=== PATIENT | male | born 1980 | race Caucasian/White ===

== ENCOUNTER → 2017-01-25 | Outpatient (CLI) | payer OTHER ==
[2017-01-25 08:25] LABS: MEAN PLATELET VOLUME 9.9 FL (7.4-10.4); RED BLOOD COUNT 5.28 10^6/uL (4.35-5.85); RED CELL DISTRIBUTION WIDTH 13.3 % (10.0-14.5); WHITE BLOOD COUNT 7.1 10^3/uL (4.3-11.0)
[2017-01-25 08:48] LABS: ALANINE AMINOTRANSFERASE 85 U/L (0-55); ALBUMIN 4.3 GM/DL (3.2-4.5); ANION GAP 11 MMOL/L (5-14); ASPARTATE AMINO TRANSFERASE 41 U/L (5-34); BILIRUBIN,TOTAL 0.7 MG/DL (0.1-1.0); BLOOD UREA NITROGEN 14 MG/DL (7-18); BUN/CREATININE RATIO 14; CALCIUM 9.6 MG/DL (8.5-10.1); CARBON DIOXIDE 25 MMOL/L (21-32); CHLORIDE 104 MMOL/L (98-107); CHOLESTEROL 166 MG/DL (< 200); CREATININE SERUM 1.01 MG/DL (0.60-1.30); DIRECT LDL 109 MG/DL (1-129); GFR ESTIMATED > 60; GLUCOSE 119 MG/DL (70-105); SODIUM 140 MMOL/L (135-145); TOTAL PROTEIN 7.7 GM/DL (6.4-8.2); TRIGLYCERIDES 175 MG/DL (<150); VLDL CHOLESTEROL 35 MG/DL (5-40)
[2017-01-25 09:08] LABS: THYROID STIMULATING HORMONE 2.18 UIU/ML (0.35-4.94)
== END ==
LOC: LAB 08:06
PROVIDERS: ATTEND Internal Medicine
DX: I10 Essential (primary) hypertension (principal); E78.4 Other hyperlipidemia; R94.5 Abnormal results of liver function studies
CPT/HCPCS: 36415; 80053; 80061; 84443; 85027

== ENCOUNTER → 2017-02-01 | Outpatient (CLI) | payer OTHER ==
[~2017-02-01] MED LIST: ATOR20TA66 PO; BISO1TAB8 PO; ESCI10TA55 PO; MECL-106 PO; ONDA8TAB9 PO; SCOP1PAT TD
--- NOTE | 2017-02-01 11:56 | Diagnostic Imaging Report ---
EXAMINATION: Ultrasound of the liver. INDICATION: Elevated liver enzymes. FINDINGS: The pancreas is obscured by bowel gas. The liver is borderline enlarged at 18.5 cm in craniocaudal dimension and demonstrates increased density diffusely which may relate to hepatitis or fatty infiltration. The gallbladder demonstrates no definite stone or wall thickening. No pericholecystic fluid. There is overall some difficulty visualizing the gallbladder on this exam related to attenuation of the ultrasound beam by the overlying liver and soft tissues. The CBD is 5 mm in caliber. There is hepatopetal flow in the portal vein demonstrated. The right kidney is 10.8 cm in length with no hydronephrosis or focal lesion. No fluid collection in the upper right abdomen is seen. Sonographic Hyman sign is reportedly negative. IMPRESSION: Hepatic echogenicity suggestive of fatty infiltration or hepatitis. Dictated by: Dictated on workstation # [id number]
== END ==
LOC: RAD 06:48
PROVIDERS: ATTEND Internal Medicine
DX: R93.2 Abnormal findings on diagnostic imaging of liver and biliary tract (principal); R74.8 Abnormal levels of other serum enzymes
CPT/HCPCS: 76705

== ENCOUNTER → 2017-08-02 | Outpatient (CLI) | payer OTHER ==
[~2017-08-02] MED LIST changes: -SCOP1PAT TD; +SCOP1PAT11 TD
[2017-08-02 09:37] LABS: BASOPHILS % (AUTO) 1 % (0-10); EOSINOPHILS # (AUTO) 0.2 10^3/uL (0.0-0.3); EOSINOPHILS % (AUTO) 4 % (0-10); HEMATOCRIT 45 % (40-54); HEMOGLOBIN 15.3 G/DL (13.3-17.7); LYMPHOCYTES # (AUTO) 2.2 X 10^3 (1.0-4.0); LYMPHOCYTES % (AUTO) 31 % (12-44); MEAN CORPUSCULAR HEMOGLOBIN 30 PG (25-34); MEAN CORPUSCULAR HGB CONC 34 G/DL (32-36); MEAN CORPUSCULAR VOLUME 87 FL (80-99); MEAN PLATELET VOLUME 9.9 FL (7.4-10.4); MONOCYTES # (AUTO) 0.5 X 10^3 (0.0-1.0); MONOCYTES % (AUTO) 8 % (0-12); NEUTROPHILS # (AUTO) 3.9 X 10^3 (1.8-7.8); NEUTROPHILS % (AUTO) 57 % (42-75); PLATELET COUNT 258 10^3/uL (130-400); RED BLOOD COUNT 5.19 10^6/uL (4.35-5.85); RED CELL DISTRIBUTION WIDTH 13.3 % (10.0-14.5); WHITE BLOOD COUNT 6.9 10^3/uL (4.3-11.0)
[2017-08-02 09:53] LABS: ALANINE AMINOTRANSFERASE 101 U/L (0-55); ALBUMIN 4.4 GM/DL (3.2-4.5); ALKALINE PHOSPHATASE 68 U/L (40-136); BUN/CREATININE RATIO 16; CALCIUM 9.4 MG/DL (8.5-10.1); CARBON DIOXIDE 24 MMOL/L (21-32); CHLORIDE 105 MMOL/L (98-107); CHOLESTEROL 143 MG/DL (< 200); CREATININE SERUM 0.88 MG/DL (0.60-1.30); GFR ESTIMATED > 60; GLUCOSE 134 MG/DL (70-105); HDL CHOLESTEROL 33 MG/DL (40-60); POTASSIUM 4.2 MMOL/L (3.6-5.0); SODIUM 138 MMOL/L (135-145); TOTAL PROTEIN 7.4 GM/DL (6.4-8.2); TRIGLYCERIDES 88 MG/DL (<150); VLDL CHOLESTEROL 18 MG/DL (5-40)
== END ==
LOC: LAB 09:18
PROVIDERS: ATTEND Internal Medicine
DX: E78.4 Other hyperlipidemia (principal); R94.5 Abnormal results of liver function studies; Z79.899 Other long term (current) drug therapy
CPT/HCPCS: 36415; 80053; 80061; 85025

== ENCOUNTER → 2018-02-06 | Outpatient (CLI) | payer OTHER ==
[2018-02-06 11:26] LABS: ALANINE AMINOTRANSFERASE 109 U/L (0-55); ALBUMIN 4.5 GM/DL (3.2-4.5); ALKALINE PHOSPHATASE 66 U/L (40-136); BILIRUBIN,TOTAL 1.1 MG/DL (0.1-1.0); BUN/CREATININE RATIO 17; CALCIUM 9.6 MG/DL (8.5-10.1); CARBON DIOXIDE 24 MMOL/L (21-32); CHLORIDE 104 MMOL/L (98-107); CHOLESTEROL 157 MG/DL (< 200); CREATININE SERUM 0.83 MG/DL (0.60-1.30); GFR ESTIMATED > 60; GLUCOSE 129 MG/DL (70-105); HDL CHOLESTEROL 30 MG/DL (40-60); POTASSIUM 4.2 MMOL/L (3.6-5.0); SODIUM 138 MMOL/L (135-145); TOTAL PROTEIN 7.5 GM/DL (6.4-8.2); TRIGLYCERIDES 133 MG/DL (<150); VLDL CHOLESTEROL 27 MG/DL (5-40)
== END ==
LOC: LAB 10:53
PROVIDERS: ATTEND Internal Medicine
DX: I10 Essential (primary) hypertension (principal); E78.4 Other hyperlipidemia; R74.8 Abnormal levels of other serum enzymes; R73.09 Other abnormal glucose
CPT/HCPCS: 36415; 80053; 80061

== ENCOUNTER 2018-05-07 20:05 | Outpatient (CLI) | payer OTHER | END 2018-05-08 06:24 | disposition home or self-care (01) | LOC: SLEEP 20:05 | PROVIDERS: ATTEND Otolaryngology Otolaryngology/Facial Plastic Surgery | DX: G47.33 Obstructive sleep apnea (adult) (pediatric) (principal); R68.3 Clubbing of fingers; G47.10 Hypersomnia, unspecified | CPT/HCPCS: 95810 ==

== ENCOUNTER → 2018-06-14 | Outpatient (CLI) | payer OTHER ==
[~2018-06-14] MED LIST changes: +BARIUM SUSPENSION 105% (LIQUID POLIBAR PLUS) 240 ML/DOSE PO ONE; +BARIUM SUSPENSION 60% (LIQUID EZ PAQUE) 240 ML DOSE PO ONE
--- NOTE | 2018-06-14 10:16 | Diagnostic Imaging Report ---
INDICATION: Preop for gastric surgery. FINDINGS: The patient ingested effervescent crystals as well as thin and thick barium and imaging of the esophagus, stomach and proximal small bowel was performed. Total of 1 minute and 8 seconds of fluoroscopy was utilized. The esophagus has a smooth contour. No mass or stricture is identified. No gastroesophageal reflux or hiatal hernia is demonstrated. There is prompt emptying from the stomach into the small bowel. Duodenal bulb is without deformity. No gastric mass is seen. IMPRESSION: Unremarkable upper GI. Dictated by: Dictated on workstation # [id number]
== END ==
LOC: RAD 09:16
PROVIDERS: ATTEND Surgery
DX: Z01.818 Encounter for other preprocedural examination (principal); K21.9 Gastro-esophageal reflux disease without esophagitis
CPT/HCPCS: 74241

== ENCOUNTER → 2018-07-31 | Outpatient (CLI) | payer OTHER ==
[~2018-07-31] MED LIST changes: -BARIUM SUSPENSION 105% (LIQUID POLIBAR PLUS) 240 ML/DOSE PO ONE; -BARIUM SUSPENSION 60% (LIQUID EZ PAQUE) 240 ML DOSE PO ONE
[2018-07-31 09:39] LABS: HEMOGLOBIN 14.7 G/DL (13.3-17.7); MEAN PLATELET VOLUME 9.5 FL (7.4-10.4); RED CELL DISTRIBUTION WIDTH 13.3 % (10.0-14.5); WHITE BLOOD COUNT 7.1 10^3/uL (4.3-11.0)
[2018-07-31 09:59] LABS: ALANINE AMINOTRANSFERASE 49 U/L (0-55); ALBUMIN 4.4 GM/DL (3.2-4.5); ALKALINE PHOSPHATASE 58 U/L (40-136); BILIRUBIN,TOTAL 0.6 MG/DL (0.1-1.0); BUN/CREATININE RATIO 24; CALCIUM 9.3 MG/DL (8.5-10.1); CARBON DIOXIDE 23 MMOL/L (21-32); CHLORIDE 104 MMOL/L (98-107); CREATININE SERUM 0.88 MG/DL (0.60-1.30); GFR ESTIMATED > 60; GLUCOSE 128 MG/DL (70-105); SODIUM 138 MMOL/L (135-145); TOTAL PROTEIN 7.5 GM/DL (6.4-8.2)
--- NOTE | 2018-07-31 10:02 | Diagnostic Imaging Report ---
PROCEDURE: CT head without contrast. TECHNIQUE: Multiple contiguous axial images were obtained through the brain without the use of intravenous contrast. INDICATION: Headache with dizziness and visual disturbances. COMPARISON: No comparison available. FINDINGS: No CT findings of an acute intracranial abnormality. There is no evidence of intracranial hemorrhage. There is no intracranial mass effect or shift. There is no hydrocephalus. There is no abnormal extra-axial fluid collection. The basilar cisterns appear patent. Aquino-white matter differentiation appear maintained. There is no abnormal low density evident within the basal ganglia or within the tenisha. Mastoid air cells appear clear. Visualized paranasal sinuses are clear. Orbital contents are unremarkable. There is no acute calvarial abnormality. IMPRESSION: 1. No CT evidence of an acute intracranial abnormality. If continued clinical concern, MRI could be considered. Dictated by: Dictated on workstation # [id number]
== END ==
LOC: RAD 09:09
PROVIDERS: ATTEND Internal Medicine
DX: H53.8 Other visual disturbances (principal); R42 Dizziness and giddiness; R51 Headache
CPT/HCPCS: 36415; 70450; 80053; 84443; 85027; 85652

== ENCOUNTER → 2021-09-15 | Outpatient (CLI) | payer OTHER ==
[~2021-09-15] MED LIST changes: +BISO-1 PO; -BISO1TAB8 PO; +ESCI-2 PO; -ESCI10TA55 PO; -MECL-106 PO; +MECL-149 PO; +SCOP1PAT10 TD; -SCOP1PAT11 TD
[2021-09-15 10:16] LABS: BASOPHILS # (AUTO) 0.1 10^3/uL (0.0-0.1); BASOPHILS % (AUTO) 1 % (0-10); EOSINOPHILS # (AUTO) 0.2 10^3/uL (0.0-0.3); EOSINOPHILS % (AUTO) 2 % (0-10); HEMATOCRIT 47 % (40-54); HEMOGLOBIN 15.7 g/dL (13.3-17.7); LYMPHOCYTES # (AUTO) 2.3 10^3/uL (1.0-4.0); LYMPHOCYTES % (AUTO) 31 % (12-44); MEAN CORPUSCULAR HEMOGLOBIN 29 pg (25-34); MEAN CORPUSCULAR HGB CONC 34 g/dL (32-36); MEAN CORPUSCULAR VOLUME 87 fL (80-99); MEAN PLATELET VOLUME 9.9 fL (9.0-12.2); MONOCYTES # (AUTO) 0.6 10^3/uL (0.0-1.0); MONOCYTES % (AUTO) 8 % (0-12); NEUTROPHILS # (AUTO) 4.3 10^3/uL (1.8-7.8); NEUTROPHILS % (AUTO) 58 % (42-75); PLATELET COUNT 287 10^3/uL (130-400); WHITE BLOOD COUNT 7.5 10^3/uL (4.3-11.0)
[2021-09-15 10:43] LABS: ALBUMIN 4.5 GM/DL (3.2-4.5); BILIRUBIN,TOTAL 0.8 MG/DL (0.1-1.0); CALCIUM 9.8 MG/DL (8.5-10.1); CREATININE SERUM 1.16 MG/DL (0.60-1.30); POTASSIUM 4.2 MMOL/L (3.6-5.0); TOTAL PROTEIN 7.8 GM/DL (6.4-8.2)
== END ==
LOC: LAB 08:55
PROVIDERS: ATTEND Internal Medicine
DX: J90 Pleural effusion, not elsewhere classified (principal)
CPT/HCPCS: 36415; 80053; 80061; 83036; 84443; 85025

== ENCOUNTER → 2022-01-19 | Outpatient (CLI) | payer OTHER ==
[2022-01-19 11:39] LABS: BASOPHILS % (AUTO) 1 % (0-10); EOSINOPHILS # (AUTO) 0.2 10^3/uL (0.0-0.3); EOSINOPHILS % (AUTO) 2 % (0-10); HEMATOCRIT 50 % (40-54); HEMOGLOBIN 16.3 g/dL (13.3-17.7); LYMPHOCYTES # (AUTO) 1.8 10^3/uL (1.0-4.0); LYMPHOCYTES % (AUTO) 26 % (12-44); MEAN CORPUSCULAR HEMOGLOBIN 28 pg (25-34); MEAN CORPUSCULAR HGB CONC 33 g/dL (32-36); MEAN CORPUSCULAR VOLUME 88 fL (80-99); MEAN PLATELET VOLUME 9.7 fL (9.0-12.2); MONOCYTES # (AUTO) 0.6 10^3/uL (0.0-1.0); MONOCYTES % (AUTO) 9 % (0-12); NEUTROPHILS # (AUTO) 4.4 10^3/uL (1.8-7.8); NEUTROPHILS % (AUTO) 62 % (42-75); PLATELET COUNT 294 10^3/uL (130-400)
[2022-01-19 12:07] LABS: ALBUMIN 4.7 GM/DL (3.2-4.5); CHLORIDE 101 MMOL/L (98-107); POTASSIUM 3.7 MMOL/L (3.6-5.0); SODIUM 141 MMOL/L (135-145)
[2022-01-19 12:08] LABS: CALCIUM 9.8 MG/DL (8.5-10.1)
[2022-01-19 12:09] LABS: TOTAL PROTEIN 8.3 GM/DL (6.4-8.2); TRIGLYCERIDES 74 MG/DL (<150); VLDL CHOLESTEROL 15 MG/DL (5-40)
[2022-01-19 12:10] LABS: CARBON DIOXIDE 27 MMOL/L (21-32); GLUCOSE 114 MG/DL (70-105)
[2022-01-19 12:11] LABS: BILIRUBIN,TOTAL 0.8 MG/DL (0.1-1.0)
[2022-01-19 12:13] LABS: ALKALINE PHOSPHATASE 65 U/L (40-136); CREATININE SERUM 0.96 MG/DL (0.60-1.30); GFR ESTIMATED 101
[2022-01-19 12:14] LABS: BUN/CREATININE RATIO 18; CHOLESTEROL 160 MG/DL (< 200)
[2022-01-19 12:15] LABS: HDL CHOLESTEROL 35 MG/DL (40-60)
[2022-01-19 12:16] LABS: ALANINE AMINOTRANSFERASE 33 U/L (0-55)
== END ==
LOC: LAB 09:14
PROVIDERS: ATTEND Internal Medicine
DX: E78.2 Mixed hyperlipidemia (principal); I10 Essential (primary) hypertension; R79.9 Abnormal finding of blood chemistry, unspecified
CPT/HCPCS: 36415; 80053; 80061; 83036; 84443; 85025

== ENCOUNTER → 2022-03-01 | Outpatient (CLI) | payer OTHER ==
[2022-03-01 07:03] LABS: POTASSIUM 3.7 MMOL/L (3.6-5.0)
[2022-03-01 07:04] LABS: CALCIUM 9.2 MG/DL (8.5-10.1)
[2022-03-01 07:08] LABS: CREATININE SERUM 0.91 MG/DL (0.60-1.30)
== END ==
LOC: LAB 06:32
PROVIDERS: ATTEND Internal Medicine
DX: Z79.899 Other long term (current) drug therapy (principal)
CPT/HCPCS: 36415; 80048

== ENCOUNTER → 2022-05-27 | Outpatient (CLI) | payer OTHER ==
[2022-05-27 14:24] LABS: BASOPHILS % (AUTO) 1 % (0-10); EOSINOPHILS # (AUTO) 0.2 10^3/uL (0.0-0.3); EOSINOPHILS % (AUTO) 3 % (0-10); HEMATOCRIT 49 % (40-54); HEMOGLOBIN 16.5 g/dL (13.3-17.7); LYMPHOCYTES # (AUTO) 1.7 10^3/uL (1.0-4.0); LYMPHOCYTES % (AUTO) 28 % (12-44); MEAN CORPUSCULAR HEMOGLOBIN 30 pg (25-34); MEAN CORPUSCULAR HGB CONC 34 g/dL (32-36); MEAN CORPUSCULAR VOLUME 88 fL (80-99); MEAN PLATELET VOLUME 9.8 fL (9.0-12.2); MONOCYTES # (AUTO) 0.5 10^3/uL (0.0-1.0); MONOCYTES % (AUTO) 8 % (0-12); NEUTROPHILS # (AUTO) 3.8 10^3/uL (1.8-7.8); NEUTROPHILS % (AUTO) 61 % (42-75); PLATELET COUNT 241 10^3/uL (130-400); WHITE BLOOD COUNT 6.2 10^3/uL (4.3-11.0)
[2022-05-27 14:48] LABS: ALBUMIN 4.5 GM/DL (3.2-4.5); BILIRUBIN,TOTAL 0.7 MG/DL (0.1-1.0); CALCIUM 9.3 MG/DL (8.5-10.1); CREATININE SERUM 0.9 MG/DL (0.60-1.30); TOTAL PROTEIN 7.6 GM/DL (6.4-8.2)
== END ==
LOC: SDC 14:08
PROVIDERS: ATTEND Physician Assistant
DX: I10 Essential (primary) hypertension (principal); E11.9 Type 2 diabetes mellitus without complications; Z79.899 Other long term (current) drug therapy
CPT/HCPCS: 36415; 80053; 83036; 85025

== ENCOUNTER → 2022-10-19 | Outpatient (CLI) | payer OTHER ==
[2022-10-19 07:04] LABS: ALBUMIN 4.5 GM/DL (3.2-4.5); BILIRUBIN,TOTAL 0.8 MG/DL (0.1-1.0); CALCIUM 9.4 MG/DL (8.5-10.1); CREATININE SERUM 1.07 MG/DL (0.60-1.30); POTASSIUM 3.9 MMOL/L (3.6-5.0); TOTAL PROTEIN 7.8 GM/DL (6.4-8.2)
== END ==
LOC: LAB 06:31
PROVIDERS: ATTEND Internal Medicine
DX: E11.9 Type 2 diabetes mellitus without complications (principal); I10 Essential (primary) hypertension
CPT/HCPCS: 36415; 80053; 83036

== ENCOUNTER 2022-11-02 05:39 | Outpatient (CLI) | payer OTHER ==
[~2022-11-02] VITALS: Ht 180.3 cm; Wt 131.5 kg
[2022-11-02] MEDS ORDERED: LOSA25TA41 PO (10:26)
[2022-11-02] MEDS ORDERED: DAPA5TAB PO (10:26)
== END 2022-11-02 10:29 | disposition home or self-care (01) ==
LOC: PREOP 05:39
PROVIDERS: ATTEND Surgery
DX: Z01.818 Encounter for other preprocedural examination (principal)

== ENCOUNTER 2022-11-09 09:52 | Day surgery (SDC) | payer OTHER ==
--- NOTE | 2022-10-30 04:46 | HISTORY AND PHYSICAL ---
DATE OF SERVICE: 11/09/2022 DATE OF ADMISSION: 11/09/2022. ATTENDING PRIMARY CARE PHYSICIAN: Dr. King Gomez. HISTORY OF PRESENT ILLNESS: The patient is a 42-year-old male known to us. He states that in the past 9 months, he has noticed bright red blood per rectum. He states that this was initially mild; however, this has increased to the point where every time he has a bowel movement, there is red blood mixed with the stools. He does not report any pain upon defecation as well as no crampy abdominal pain. He states that in his past he may have had some hard constipated stools; however, at this time does not have any issues with this. He is otherwise doing well and is not experiencing any systemic symptoms of fever, no chills, diffuse, crampy abdominal pain as well as no recent inadvertent weight loss. He has not had a colonoscopy at this point in his life. He does not report any family history of colon cancer. PAST MEDICAL HISTORY: Hypertension, hypercholesterolemia, diabetes. PAST SURGICAL HISTORY: Left shoulder arthroscopy, left knee arthroscopy, multiple incision and drainage of perirectal abscess as well as a Seton suture placement for fistula. Lateral internal sphincterotomy. ALLERGIES: No known drug allergies. MEDICATIONS: Atorvastatin 20 mg daily, losartan 10 mg daily, Farxiga 5 mg daily. SOCIAL HISTORY: Negative smoke, negative alcohol. FAMILY HISTORY: Father, coronary artery disease, diagnosed in his 60s. Mother, multiple sclerosis. VITAL SIGNS: Stable. Blood pressure 126/80, current weight 290 pounds at 6 feet 0 inches. REVIEW OF SYSTEMS: Well-nourished male in no acute distress. He is not in any shortness of breath, no difficulty breathing. No chest pain, palpitations, diaphoresis. No nausea, vomiting with 9-month history of bright red blood per rectum usually, mixed with stools with most bowel movements. No abdominal pain. No fever, chills, no recent inadvertent weight loss. All other review of systems negative. PHYSICAL EXAMINATION: CHEST: Clear. Good breath sounds bilaterally. HEART: Regular. No murmurs. EXTREMITIES: No lower extremity edema. Negative Homans sign. HEENT: No scleral icterus. No cervical lymphadenopathy. ABDOMEN: Soft, nontender, nondistended. No palpable masses. No hernias. SKIN: Warm, dry. ASSESSMENT AND PLAN: A 42-year-old male with persistent rectal bleeding. Due to its symptomatology as well as his age being close to 43, we will proceed with a diagnostic colonoscopy as well as biopsies as appropriate. Job ID: [id number] DocumentID: [id number] Dictated Date: 10/15/2022 18:43:57 Farm Field Manager Date: 10/15/2022 19:10:00 Dictated By: TONY HOOKS MD
[~2022-11-09] VITALS: Ht 180 cm; Wt 130.0 kg
[~2022-11-09 09:52] MED LIST changes: +DAPA5TAB PO; +LOSA25TA41 PO
[2022-11-09 10:13] VITALS: BP 129/80
[2022-11-09] MEDS ORDERED: LACTATED RINGERS 1,000 ML IV STA (10:20)
[2022-11-09] MEDS ORDERED: PROPOFOL INJECTION 50 ML IV ONE ×2 (10:29→10:52)
[2022-11-09] MEDS ORDERED: MIDAZOLAM 2 MG/2 ML (VERSED) VIAL ONE (10:29)
[2022-11-09] MEDS ORDERED: LIDOCAINE JELLY 2% 6 ML SYRINGE MM PRN (10:30)
[2022-11-09] MEDS ORDERED: LIDOCAINE JELLY 2% 6 ML SYRINGE ONE ×2 (10:31→10:32)
--- NOTE | 2022-11-09 10:35 | Progress Note-Pre Operative ---
Pre-Operative Progress Note Date of Available H&P: Nov 09, 2022 Date H&P Reviewed: Nov 09, 2022 Time H&P Reviewed: 10:00 History & Physical: No changes noted Pre-Operative Diagnosis: rectal bleed TONY HOOKS MD Nov 09, 2022 10:35
--- NOTE | 2022-11-09 10:36 | Discharge Inst-Surgical ---
D/C Lap Instructions-NEVA Follow Up Activity as tolerated High Fiber Diet 25g or more per day Avoid Alcohol, Caffeine, Spicy Cantril and Acid foods. Drink 64 fluid oz or more of fluids per day. Symptoms to Report: Fever over 101 degree F, Nausea/Vomiting If any problems/questions: Contact your physician or go to Emergency Room TONY HOOKS MD Nov 09, 2022 10:36
[2022-11-09] MEDS ORDERED: ONDANSETRON 4 MG (ZOFRAN) ORAL DISSOLVE TAB PO PRN (10:45)
[2022-11-09] MEDS ORDERED: ONDANSETRON 4 MG/2 ML (SDV) Z0FRAN IVP PRN (10:45)
[2022-11-09 11:00] VITALS: BP 102/55
[2022-11-09 11:05] VITALS: BP 120/60
[2022-11-09 11:18] VITALS: BP 120/60
--- NOTE | 2022-11-09 11:19 | Progress Note-Post Operative ---
Post-Operative Progess Note Surgeon (s)/Cook Vegetable (s) Surgeon TONY HOOKS MD Cook Vegetable: none Pre-Operative Diagnosis rectal bleed Post-Operative Diagnosis chronic stage int hemorrhoids, possible perianal fistula. Procedure & Operative Findings Date of Procedure 11/09/22 Procedure Performed/Findings colonoscopy Anesthesia Type mac Estimated Blood Loss Estimated blood loss (mL): minimal Specimens/Packing Specimens Removed none TONY HOOKS MD Nov 09, 2022 11:19
[2022-11-09 11:27] VITALS: BP 120/60
--- NOTE | 2022-11-09 11:44 | Anesthesia-General Post-Op ---
MAC Patient Condition Mental Status/LOC: Same as Preop Cardiovascular: Satisfactory Nausea/Vomiting: Absent Respiratory: Satisfactory Pain: Controlled Complications: Absent Post Op Complications Complications None Follow Up Care/Instructions Patient Instructions None needed. Anesthesiology Discharge Order Discharge Order Patient is doing well, no complaints, stable vital signs, no apparent adverse anesthesia problems. No complications reported per nursing. DIANNE REDMOND [employer] PLAYER Nov 09, 2022 11:44
--- NOTE | 2022-11-09 17:42 | OPERATIVE REPORT ---
DATE OF SERVICE: 11/09/2022 ATTENDING PRIMARY CARE PHYSICIAN: Dr. King Gomez. PREOPERATIVE DIAGNOSIS: Rectal bleeding. 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 PROCEDURE: Colonoscopy. SURGEON: Tony Hooks MD ANESTHESIA: Monitored anesthesia care. ESTIMATED BLOOD LOSS: Minimal. 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 DISPOSITION: The patient tolerated the procedure well. INDICATIONS: The patient is a 42-year-old male known to us. He states in the past 9 months, he has noticed bright red blood per rectum, which was initially mild; however, increased to the point where he would have red blood mixed with the stools with every bowel movement. He does not report any pain upon defecation as well as no crampy abdominal pain. He states that in the past, he did have some minor issues with constipation and this did cause him to develop some issues including perirectal abscess, fistula and requiring multiple incision and drainage of perirectal abscesses, Seton suture placement for fistula as well as a lateral internal sphincterotomy. He is otherwise doing well, is not experiencing any systemic symptoms of fever, no chills as well as no diffuse, crampy abdominal pain and no recent inadvertent weight loss. He also does not report any family history of colon or rectal cancer. DESCRIPTION OF PROCEDURE: The patient was brought to the endoscopy suite and laid in the left lateral decubitus position. After adequate IV pain and sedative medications and monitored anesthesia care, a digital rectal examination was performed. There were postsurgical changes from the previous incision and drainage of perirectal abscesses, fistulotomy and internal sphincterotomy. There was a between stage II and III internal hemorrhoids. There was a small sinus tract of the superior aspect of the anus next to the coccyx, which was not actively edematous and no bleeding identified. We could not tell if there was any communication within the anal canal. Normal sphincter tone was felt and there were no palpable masses. Prostate gland was palpable and appeared normal. The endoscope was then intubated into the anus, rectum gently insufflated. The endoscope was then advanced through the valves of Birch of the rectum with no polyps or any neoplasms identified. We then proceeded through the sigmoid colon where no diverticulosis identified. The endoscope was then advanced to the remainder of the descending, transverse and ascending colon to the cecum, which were normal. There were no polyps or any neoplasms identified as well as no mucosal inflammatory changes identified. The endoscope was then slowly withdrawn while taking a second look and suctioning of residual air with no additional findings. The patient tolerated the procedure well. We will recommend continued medical management with a high-fiber diet with incorporation of a fiber supplement, which should equal or exceed 30 grams daily as well as significant amounts of water to promote soft stools on a daily basis. If he continues to have issues with rectal bleeding, we would then recommend an anal exam under anesthesia to identify the possibility of a fistula and the proper treatment for this whether be a fistulotomy or Seton suture placement. Job ID: [id number] DocumentID: [id number] Dictated Date: 11/09/2022 11:05:55 Dairy Farm Manager Date: 11/09/2022 17:40:00 Dictated By: TONY HOOKS MD
== END 2022-11-09 11:41 | disposition home or self-care (01) ==
LOC: ENDO 09:52
PROVIDERS: ATTEND Surgery
DX: K64.1 Second degree hemorrhoids (principal); K62.5 Hemorrhage of anus and rectum; G47.33 Obstructive sleep apnea (adult) (pediatric); E11.9 Type 2 diabetes mellitus without complications; E66.01 Morbid (severe) obesity due to excess calories; Z79.84 Long term (current) use of oral hypoglycemic drugs; Z68.41 Body mass index [BMI] 40.0-44.9, adult; Z98.890 Other specified postprocedural states

== ENCOUNTER → 2023-03-07 | Outpatient (CLI) | payer OTHER ==
[~2023-03-07] MED LIST changes: -MECL-149 PO; +MECL-291 PO
[2023-03-07 13:31] LABS: ALBUMIN 4.5 GM/DL (3.2-4.5); CALCIUM 9.4 MG/DL (8.5-10.1); CREATININE SERUM 0.98 MG/DL (0.60-1.30); TOTAL PROTEIN 7.8 GM/DL (6.4-8.2)
== END ==
LOC: LAB 12:54
PROVIDERS: ATTEND Internal Medicine
DX: E11.9 Type 2 diabetes mellitus without complications (principal); I10 Essential (primary) hypertension; E78.2 Mixed hyperlipidemia
CPT/HCPCS: 36415; 80053; 80061; 83036